=== PATIENT | female | born 1995 | race American Indian/Alaskan Native ===

== ENCOUNTER 2017-02-05 16:59 | Emergency (ER) | payer BC ==
[2017-02-05 17:56] VITALS: BP 136/92
[2017-02-05 18:49] LABS: Bacteria,Urine 1+ /HPF (Negative); Bilirubin,Urine NEG (Negative); Blood,Urine SM (Negative); Ketones,Urine 80 mg/dL (Negative); Leukocyte Esterase,Urine LG (Negative); Mucus,Urine 3+ /HPF; Nitrite,Urine NEG (Negative)
[2017-02-05 19:33] LABS: Basophils % (Auto) 0.4 % (0.0-1.8); Eosinophils % (Auto) 0.8 % (0.0-4.3); Hematocrit 36.1 % (30.3-42.9); Hemoglobin 11.2 gm/dl (10.1-14.3); Mean Corpuscular HGB Conc 31 % (30-34); Mean Corpuscular Hemoglobin 26 pg (28-32); Mean Corpuscular Volume 84 fl (79-97); Platelet Count 249 K/mm3 (140-440); Red Blood Count 4.32 M/mm3 (3.65-5.03); White Blood Count 6.5 K/mm3 (4.5-11.0)
[2017-02-05] MEDS ORDERED: TYLENOL PO ONE (20:48)
--- NOTE | 2017-02-05 20:54 | Emergency Department Report ---
Chief Complaint: Vaginal Bleeding Stated Complaint: ABD PAIN - HPI History of Present Illness: Patient complaining of pelvic cramping, and spotting that started this morning. Patient states she is not sure if she is - Exam Vital Signs: Vital Signs 02/05/17 17:52 Temperature 98.5 F Pulse Rate 93 H Respiratory 18 Rate Blood Pressure 136/92 O2 Sat by Pulse 98 Oximetry MSE screening note: Focused history and physical exam performed. Due to findings the following was ordered: ED Medical Decision Making - Lab Data Result diagrams: 02/05/17 18:34 ED Disposition for MSE Condition: Stable Referrals: PRIMARY CARE, [Primary Care Provider] - 3-5 Days
--- NOTE | 2017-02-08 15:32 | ED Elopement Review ---
ED Pt Elopement review - Results review Lab results: Laboratory Tests 02/05/17 02/05/17 02/05/17 18:17 18:34 21:16 WBC 6.5 RBC 4.32 Hgb 11.2 Hct 36.1 MCV 84 MCH 26 L MCHC 31 RDW 14.0 Plt Count 249 Lymph % (Auto) 23.2 [place] % (Auto) 7.8 H Eos % (Auto) 0.8 Baso % (Auto) 0.4 Lymph # 1.5 [place] # 0.5 Eos # 0.1 Baso # 0.0 Seg Neutrophils % 67.8 Seg Neutrophils # 4.4 HCG, Quant < 2 Urine Color Laney Urine Turbidity Cloudy Urine pH 5.0 Ur Specific Hannah 1.026 Urine Protein 30 mg/dl Urine Glucose (UA) Neg Urine Ketones 80 Urine Blood Sm Urine Nitrite Neg Ur Reducing Substances Not Reportable Urine Bilirubin Neg Urine Ictotest Not Reportable Urine Urobilinogen 2.0 Ur Leukocyte Esterase Lg Urine WBC (Auto) 33.0 H Urine RBC (Auto) 6.0 U Epithel Cells (Auto) 38.0 H Urine Bacteria (Auto) 1+ Urine Mucus 3+ Urine HCG, Qual Negative Blood Type 02/05/17 21:16 WBC RBC Hgb Hct MCV MCH MCHC RDW Plt Count Lymph % (Auto) [place] % (Auto) Eos % (Auto) Baso % (Auto) Lymph # [place] # Eos # Baso # Seg Neutrophils % Seg Neutrophils # HCG, Quant Urine Color Urine Turbidity Urine pH Ur Specific Hannah Urine Protein Urine Glucose (UA) Urine Ketones Urine Blood Urine Nitrite Ur Reducing Substances Urine Bilirubin Urine Ictotest Urine Urobilinogen Ur Leukocyte Esterase Urine WBC (Auto) Urine RBC (Auto) U Epithel Cells (Auto) Urine Bacteria (Auto) Urine Mucus Urine HCG, Qual Blood Type B POSITIVE - Call Back decision Pt Call Back Decision: No action required
== END 2017-02-05 19:11 | disposition left against medical advice (07) ==
LOC: ED 16:59
DX: R10.2 Pelvic and perineal pain (principal); Z53.21 Procedure and treatment not carried out due to patient leaving prior to being seen by health care provider
CPT/HCPCS: 36415; 81001; 81025; 84702; 85025; 86900; 86901

== ENCOUNTER 2017-07-26 15:28 | Emergency (ER) | payer BC ==
[2017-07-26 15:49] VITALS: BP 131/90
== END 2017-07-27 02:27 | disposition left against medical advice (07) ==
LOC: ED 15:28
DX: Z53.21 Procedure and treatment not carried out due to patient leaving prior to being seen by health care provider (principal)

== ENCOUNTER 2017-07-28 11:02 | Emergency (ER) | payer BC ==
[2017-07-28 11:10] VITALS: BP 140/95
[2017-07-28 14:50] LABS: Bacteria,Urine 1+ /HPF (Negative); Bilirubin,Urine NEG (Negative); Blood,Urine NEG (Negative); Ketones,Urine NEG (Negative); Leukocyte Esterase,Urine NEG (Negative); Mucus,Urine 3+ /HPF; Nitrite,Urine NEG (Negative); Protein,Urine <15 mg/dL mg/dL (Negative); Urobilinogen,Urine < 2.0 mg/dL (<2.0)
== END 2017-07-28 17:41 | disposition left against medical advice (07) ==
LOC: ED 11:02
DX: N89.8 Other specified noninflammatory disorders of vagina (principal); Z53.21 Procedure and treatment not carried out due to patient leaving prior to being seen by health care provider
CPT/HCPCS: 81001; 81025

== ENCOUNTER 2020-10-07 21:13 | Emergency (ER) | payer BC ==
[2020-10-07 21:58] LABS: Basophils # (Auto) 0.1 K/mm3 (0.0-0.1); Basophils % (Auto) 1.3 % (0.0-1.8); Eosinophils # (Auto) 0.2 K/mm3 (0.0-0.4); Hematocrit 33.1 % (30.3-42.9); Hemoglobin 10.8 gm/dl (10.1-14.3); Lymphocytes # (Auto) 2.7 K/mm3 (1.2-5.4); Lymphocytes % (Auto) 33.3 % (13.4-35.0); Mean Corpuscular HGB Conc 33 % (30-34); Mean Corpuscular Volume 85 fl (79-97); Monocytes # (Auto) 0.5 K/mm3 (0.0-0.8); Monocytes % (Auto) 5.7 % (0.0-7.3); Platelet Count 276 K/mm3 (140-440); Red Blood Count 3.91 M/mm3 (3.65-5.03); Red Cell Distribution Width 14.6 % (13.2-15.2)
[2020-10-07] MEDS ORDERED: ACETAMINOPHEN 325 MG TAB PO ONE (22:34)
--- NOTE | 2020-10-07 22:37 | Emergency Department Report ---
ED HPI - General Chief complaint: Vaginal Bleeding Stated complaint: MISCARRIAGE Time Seen by Provider: 10/07/20 22:14 Source: patient Mode of arrival: Ambulatory Limitations: No Limitations - History of Present Illness Initial comments: 25-year-old obese female well-appearing in no distress . Patient states she was seen at [facility] on Sunday for vaginal bleeding she had a positive test. She also returned on Sunday to [facility] because of increased bleeding and she was told to follow-up if bleeding became worse. Patient reports states that today she had 1 episode of passing clots. She used 1 pad today and is now complaining of lower abdominal discomfort. 1 para 0. She denies any past medical history - Related Data Previous Rx's Medication Instructions Recorded Last Taken Type Amoxicillin/K Clav Tab [Augmentin 1 tab PO BID #20 tablet 03/08/15 Unknown Rx 875MG] Fluconazole (Nf) [Diflucan TAB] 150 mg PO ONCE #2 tablet 10/06/16 Unknown Rx metroNIDAZOLE [Flagyl TAB] 500 mg PO Q12HR #14 tab 10/06/16 Unknown Rx Allergies Allergy/AdvReac Type Severity Reaction Status Date / Time No Known Allergies Allergy Unverified 03/08/15 16:20 ED Review of Systems ROS: Stated complaint: MISCARRIAGE Other details as noted in HPI Comment: All other systems reviewed and negative Constitutional: no symptoms reported. denies: chills, fever, malaise Respiratory: denies: cough, orthopnea, shortness of breath, SOB with exertion Endocrine: denies: excessive sweating Gastrointestinal: abdominal pain (cramping). denies: nausea, constipation, hematemesis Genitourinary: other (vaginal bleeding ). denies: urgency, dysuria, discharge Musculoskeletal: other (vaginal bleeding ) Neurological: denies: headache, paresthesias Hematological/Lymphatic: denies: easy bruising, swollen glands ED Past Medical Hx - Past Medical History Previous Medical History?: Yes Additional medical history: PID - Surgical History Past Surgical History?: No - Social History Smoking Status: Never Smoker Substance Use Type: Marijuana - Medications Home Medications: Home Medications Medication Instructions Recorded Confirmed Last Taken Type Amoxicillin/K Clav Tab [Augmentin 1 tab PO BID #20 tablet 03/08/15 Unknown Rx 875MG] Fluconazole (Nf) [Diflucan TAB] 150 mg PO ONCE #2 tablet 10/06/16 Unknown Rx metroNIDAZOLE [Flagyl TAB] 500 mg PO Q12HR #14 tab 10/06/16 Unknown Rx ED Physical Exam - General Limitations: No Limitations General appearance: alert, in no apparent distress - Head Head exam: Present: atraumatic - Eye Eye exam: Present: normal appearance - ENT ENT exam: Present: normal exam, mucous membranes moist - Neck Neck exam: Present: normal inspection - Respiratory Respiratory exam: Present: normal lung sounds bilaterally - Cardiovascular Cardiovascular Exam: Present: regular rate, normal heart sounds - GI/Abdominal GI/Abdominal exam: Present: soft. Absent: distended, tenderness, guarding, rebound - Extremities Exam Extremities exam: Present: normal inspection, normal capillary refill - Back Exam Back exam: Present: normal inspection - Neurological Exam Neurological exam: Present: alert, oriented X3 - Psychiatric Psychiatric exam: Present: normal affect - Skin Skin exam: Present: warm, dry, intact, normal color ED Course Vital Signs 10/07/20 21:31 Temperature 98.7 F Pulse Rate 98 H Respiratory 17 Rate Blood Pressure 138/88 O2 Sat by Pulse 100 Oximetry - Reevaluation(s) Reevaluation #1: 10/08/20 00:37 Well-appearing in no acute distress I reviewed results with the patient she verbalized understanding the plan to follow-up with [facility] ED Medical Decision Making - Lab Data Result diagrams: 10/07/20 21:41 - Radiology Data Radiology results: report reviewed FINDINGS: Transabdominal and transvaginal imaging was performed. No intrauterine gestational sac is seen. The endometrial echo complex measures 13 mm. This is within normal limits. There is a small amount of fluid within the cervix. There is a 1.5 cm right ovarian cyst. Right ovary is otherwise unremarkable. The left ovary is not visualized. There is trace free fluid in the cul-de-sac. IMPRESSION: 1. No sonographic evidence of intrauterine . There is trace fluid in the cervix. Minimal fluid in the cul-de-sac is also noted. 2. Simple cyst in the right ovary measuring 1.5 cm. 3. No adnexal lesions are identified. - Medical Decision Making 25-year-old female 1 para 0. She reports a history of vaginal bleeding which started on Sunday. Patient was seen at [facility] on Sunday and also on Sunday where she was confirmed . Donald she came to the ER because of continued vaginal bleeding and cramping. She reported only using one pad today she had 1 episode of passing blood clot. On her hCG quant is 22.84 ultrasound shows no sonographic evidence of intrauterine and she had no adnexal lesions. Patient is comfortable while in the ER she was given Tylenol for mild abdominal pain. I discussed all findings with patient she is safe to discharge home with the knowledge of following up with her [facility] or returning to the ER for any worsening symptoms such as increased pain and vaginal bleeding - Differential Diagnosis Miscarriage threatened AB ectopic Critical Care Time: No Critical care attestation.: If time is entered above; I have spent that time in minutes in the direct care of this critically ill patient, excluding procedure time. ED Disposition Clinical Impression: Miscarriage, threatened, early Disposition: TO HOME OR SELFCARE Is pt being admited?: No Does the pt Need Aspirin: No Condition: Stable Instructions: Threatened Miscarriage, Vaginal Bleeding During , First Trimester Additional Instructions: Follow-up with your [facility] as soon as possible. If you are unable to see your OB and you have worsening vaginal bleeding or pain return to the emergency room. Take Tylenol 2 tabs every 6-8 hours as needed for pain drink plenty fluids and rest. FINDINGS: Of the ULTRASOUND Transabdominal and transvaginal imaging was performed. No intrauterine gestational sac is seen. The endometrial echo complex measures 13 mm. This is within normal limits. There is a small amount of fluid within the cervix. There is a 1.5 cm right ovarian cyst. Right ovary is otherwise unremarkable. The left ovary is not visualized. There is trace free fluid in the cul-de-sac. IMPRESSION: 1. No sonographic evidence of intrauterine . There is trace fluid in the cervix. Minimal fluid in the cul-de-sac is also noted. 2. Simple cyst in the right ovary measuring 1.5 cm. 3. No adnexal lesions are identified. On 10/07/20 Your HCG Quant 22.84 Follow up with [facility] phone [phone] [address] [facility], [place] [address] Referrals: PRIMARY CAREMD [Primary Care Provider] - 3-5 Days Time of Disposition: 23:50
[2020-10-07 22:38] LABS: Bilirubin,Urine NEG (Negative); Blood,Urine LG (Negative); Color,Urine Yellow (Yellow); Mucus,Urine 3+ /HPF; Urobilinogen,Urine < 2.0 mg/dL (<2.0); WBC,Urine < 1.0 /HPF (0.0-6.0)
--- NOTE | 2020-10-07 22:45 | Ultrasound Report ---
US OB <= 14 weeks fetus, US OB transvaginal INDICATION / CLINICAL INFORMATION: vaginal bleeding. COMPARISON: None available. FINDINGS: Transabdominal and transvaginal imaging was performed. No intrauterine gestational sac is seen. The endometrial echo complex measures 13 mm. This is within normal limits. There is a small amount of fluid within the cervix. There is a 1.5 cm right ovarian cyst. Right ovary is otherwise unremarkable. The left ovary is not vi sualized. There is trace free fluid in the cul-de-sac. IMPRESSION: 1. No sonographic evidence of intrauterine . There is trace fluid in the cervix. Minimal flu id in the cul-de-sac is also noted. 2. Simple cyst in the right ovary measuring 1.5 cm. 3. No adnexal lesions are identified. Signer Name: Rakan Caal MD Signed: 10/07/2020 10:41 PM Workstation Name: [id number]
[2020-10-08 00:56] VITALS: BP 130/84
== END 2020-10-08 00:08 | disposition home or self-care (01) ==
LOC: ED 21:13
DX: O20.0 Threatened abortion (principal); Z79.899 Other long term (current) drug therapy; Z3A.00 Weeks of gestation of pregnancy not specified
CPT/HCPCS: 36415; 76801; 76817; 81001; 84702; 85025; 86900; 86901